=== PATIENT | male | born 1985 | race Caucasian/White ===

== ENCOUNTER 2016-12-28 10:30 | Observation (INO) | payer BC ==
[~2016-12-28] VITALS: Ht 185.4 cm; Wt 93.0 kg
[2016-12-30] MEDS ORDERED: ULTRAM DPS50 MG PO (12:04)
[2016-12-30] MEDS ORDERED: FLEXERIL DPS5 MG PO (12:04)
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
== END 2016-12-29 17:40 | disposition home or self-care (01) ==
LOC: ER 10:30 → 5MS 13:30
PROVIDERS: ADMIT Neurological Surgery
DX: S83.92XA Sprain of unspecified site of left knee, initial encounter (principal); M25.462 Effusion, left knee; S80.812A Abrasion, left lower leg, initial encounter; S70.311A Abrasion, right thigh, initial encounter; M47.812 Spondylosis without myelopathy or radiculopathy, cervical region; F17.200 Nicotine dependence, unspecified, uncomplicated; V89.2XXA Person injured in unspecified motor-vehicle accident, traffic, initial encounter